=== PATIENT | male | born 1940 | race Caucasian/White ===

== ENCOUNTER 2016-10-12 10:16 | Emergency (ER) | payer MEDICARE, OTHER ==
[2016-10-12 10:22] VITALS: BP 132/64
[2016-10-12] MEDS ORDERED: DOXYcycline CAP(*) 100 MG PO ONE (11:41)
--- NOTE | 2016-10-12 11:47 | UC ---
Skin Complaint HPI - HPI Summary HPI Summary: 75 y/o male presents to the urgent care c/o tick bite when [place]. He tried to remove it w/o any success. He reports he had another tick bite about 3 weeks ago, but he didn't get the prophylactic treatment. Patient denies fever, RAMSEY , SOB, chest pain, N/V/D or rashes. - History of Current Complaint Chief Complaint: UCSkin Time Seen by Provider: 10/12/16 11:29 Stated Complaint: TICK BITE Hx Obtained From: Patient Onset/Duration: Sudden Onset, Lasting Days, Still Present Skin Exposure Onset/Duration: Days Ago - 1 day ago Timing: Constant Current Severity: Mild Pain Intensity: 0 Pain Scale Used: 0-10 Numeric Location: Other - RT lower extremity with a tick Aggravating: Nothing Alleviating: Nothing Associated Signs & Symptoms: Positive: Rash - around tick bite. Negative: Nausea, Vomiting, Weakness, Fever, Tenderness, Joint Swelling Related History: Insect Bite/Sting - Allergy/Home Medications Allergies/Adverse Reactions: Allergies Allergy/AdvReac Type Severity Reaction Status Date / Time No Known Allergies Allergy Verified 10/12/16 10:21 Home Medications: Home Medications NK [No Home Medications Reported] 10/12/16 [History Confirmed 10/12/16] Review of Systems Constitutional: Negative Skin: Rash - around tick bite ENT: Negative Respiratory: Negative Gastrointestinal: Negative Genitourinary: Negative Motor: Negative Neurovascular: Negative Musculoskeletal: Negative Neurological: Negative Psychological: Anxious All Other Systems Reviewed And Are Negative: Yes PMH/Surg Hx/FS Hx/Imm Hx Previously Healthy: Yes - Surgical History Surgical History: Yes Surgery Procedure, Year, and Place: Hernia repair 15 years ago, Cateracts, Tonsils, - Family History Known Family History: Positive: Cardiac Disease, Diabetes - Social History Occupation: Retired Lives: With Family Alcohol Use: None Substance Use Type: None Smoking Status (MU): Never Smoked Tobacco Physical Exam Triage Information Reviewed: Yes Appearance: Well-Appearing, No Pain Distress, Well-Nourished, Thin Vital Signs: Initial Vital Signs Temp 98.3 F 10/12/16 10:18 Pulse 61 10/12/16 10:18 Resp 16 10/12/16 10:18 BP 132/64 10/12/16 10:18 Pulse Ox 100 10/12/16 10:18 Vital Signs Reviewed: Yes Eye Exam: Normal Eyes: Positive: Conjunctiva Clear ENT Exam: Normal ENT: Positive: Normal ENT inspection, Hearing grossly normal, Pharynx normal, TMs normal Neck exam: Normal Neck: Positive: Supple, Nontender, No Lymphadenopathy Respiratory Exam: Normal Respiratory: Positive: Chest non-tender, Lungs clear, Normal breath sounds Cardiovascular Exam: Normal Cardiovascular: Positive: RRR, No Murmur, Pulses Normal Abdominal Exam: Normal Abdomen Description: Positive: Nontender, No Organomegaly, Soft Bowel Sounds: Positive: Present Musculoskeletal Exam: Normal Musculoskeletal: Positive: Strength Intact, ROM Intact, No Edema Neurological Exam: Normal Neurological: Positive: Alert - and oriented x4, CN II-XII intact Psychological Exam: Normal Skin: Positive: Other - Positive Tick bite with alive tick on the ventral side of the RT lower extremity just below the knee. Mild erythematous eruption around tick bite, no swelling or pus noted, no tenderness on palpation Course/Dx - Course Course Of Treatment: Tick bite:Hx Obtained. PE abnormal finding:Positive Tick bite with alive tick on the ventral side of the RT lower extremity just below the knee. Mild erythematous eruption around tick bite, no swelling or pus noted , no tenderness on palpation. Tick was removed from RT lower extremity just below the Rt knee twister technique. After tick removal and the skin cleansing. Pt advised to observe the area for the development or Erythema Migrans for upto 30 days following exposure. Components of the tick saliva can cause transient erythema that should no be confused with Erythema Migrans. Pt given Prophylactic treatment of Doxycycline 200mg PO one dose to preven Lyme disease. Pt tolerated well medication and left the clinic ambulating. Antibiotic prophylaxis with Doxycycline given to the patient to prevent lyme Disease.. Pt tolerated well medication. - Differential Diagnoses - Skin Complaint Differential Diagnoses: Cellulitis, Poison Omayra, Scabies, Tick Born Illness, Urticaria - Diagnoses Provider Diagnoses: tick bite on RT lower extremity Discharge - Discharge Plan Condition: Stable Disposition: HOME Patient Education Materials: Tick Bite (ED) Referrals: Jose Joaquin MD [Primary Care Provider] - Additional Instructions: Please observe the area for the development or Erythema Migrans for up to 30 days following exposure. Components of the tick saliva can cause transient erythema that should no be confused with Erythema Migrans. Antibiotic prophylaxis with Doxycycline given todayt to prevent lyme Disease.. If fever or rash develops please return to the Urgent care of f/u with your PCP for furhter evaluation and treatment.
== END 2016-10-12 11:55 | disposition home or self-care (01) ==
LOC: UCEAST 10:16
DX: S80.861A Insect bite (nonvenomous), right lower leg, initial encounter (principal); W57.XXXA Bitten or stung by nonvenomous insect and other nonvenomous arthropods, initial encounter; Y93.9 Activity, unspecified; Y92.328 Other athletic field as the place of occurrence of the external cause; R21 Rash and other nonspecific skin eruption
CPT/HCPCS: 99202; A9270-GY; G0463